=== PATIENT | male | born 1985 | race Caucasian/White ===

== ENCOUNTER 2021-10-10 23:42 | Emergency (ER) | payer MEDICAID ==
[~2021-10-10] VITALS: Ht 175.3 cm; Wt 73.0 kg
[2021-10-11 00:46] LABS: CLARITY URINE CLEAR (CLEAR); COLOR URINE YELLOW (YELLOW); KETONES URINE TRACE (NEGATIVE); LEUKOCYTE ESTERASE URINE NEGATIVE (NEGATIVE); NITRITE URINE NEGATIVE (NEGATIVE); OCCULT BLOOD URINE NEGATIVE (NEGATIVE); PROTEIN URINE NEGATIVE (NEGATIVE); SPECIFIC GRAVITY URINE 1.013 (1.005-1.030); UROBILINOGEN URINE 0.2 E.U./dL (0.2-1.0)
[2021-10-11 00:51] LABS: CHLORIDE 109 mEq/L (98-107)
[2021-10-11 00:55] LABS: ETHANOL BLOOD < 10 mg/dL
[2021-10-11 01:17] LABS: BASOPHILS % 0.4 % (0.0-2.0); EOSINOPHILS % 3.1 % (0.0-5.0); HEMATOCRIT. 39.4 % (42.0-52.0); HEMOGLOBIN. 13.6 g/dL (14.0-18.0); LYMPHOCYTES % 38.2 % (20.0-50.0); MEAN CORPUSCULAR HEMOGLOBIN 30.6 pg (28.0-32.0); MEAN CORPUSCULAR VOLUME 88.6 fL (80.0-94.0); MEAN PLATELET VOLUME 7.2 fl (7.4-10.4); MONOCYTES % 7.2 % (2.0-8.0); NEUTROPHILS % 51.1 % (40.0-76.0); PLATELET 311 x1000/uL (130-400); RED BLOOD CELL COUNT 4.45 mill/uL (4.7-6.1); RED CELL DISTRIBUTION WIDTH 13.4 % (11.6-14.6)
[2021-10-11 01:27] LABS: *AMPHETAMINES SCREEN URINE PRESUMTIVE POSITIVE (NEGATIVE); *BARBITURATES SCREEN URINE NEGATIVE (NEGATIVE); *BENZODIAZEPINES SCREEN URINE NEGATIVE (NEGATIVE); CANNABINOID URINE SCREEN PRESUMTIVE POSITIVE (NEGATIVE); METHADONE URINE SCREEN NEGATIVE (NEGATIVE); PHENCYCLIDINE URINE SCREEN NEGATIVE (NEGATIVE)
[2021-10-11 01:28] LABS: *COCAINE SCREEN URINE NEGATIVE (NEGATIVE)
[2021-10-11 01:40] LABS: OPIATES URINE SCREEN NEGATIVE (NEGATIVE)
[2021-10-11] MEDS: FLUOXETINE HCL 10 MG CAPSULE PO SCH (11:49)
[2021-10-12] MEDS: FLUOXETINE HCL 10 MG CAPSULE PO SCH (09:00)
[2021-10-12] MEDS ORDERED: NICOTINE 14MG PATCH TD ONE (16:30)
[2021-10-12] MEDS ORDERED: LORAZEPAM 2MG/ML CPJ IM ONE (18:00)
[2021-10-12] MEDS ORDERED: OLANZAPINE 10 MG/VIAL IM ONE (18:00)
[2021-10-12 19:20] VITALS: BP 116/89
== END 2021-10-12 19:30 ==
LOC: ER 23:42
DX: T50.902A Poisoning by unspecified drugs, medicaments and biological substances, intentional self-harm, initial encounter (principal); R45.1 Restlessness and agitation; F17.210 Nicotine dependence, cigarettes, uncomplicated; Z78.1 Physical restraint status; Z75.1 Person awaiting admission to adequate facility elsewhere; Z20.822 Contact with and (suspected) exposure to COVID-19; Y92.488 Other paved roadways as the place of occurrence of the external cause
CPT/HCPCS: 99285; J2060; J3490